=== PATIENT | female | born 1970 | race Two or more races ===

== ENCOUNTER 2024-12-20 10:58 | Emergency (ER) | payer OTHER ==
[~2024-12-20] VITALS: Ht 165.1 cm; Wt 72.6 kg
[2024-12-20] MEDS ORDERED: IPRATROPIUM/ALBUTEROL SULFATE 3 ML AMPUL.NEB IH ONE ×2 (13:30→14:01)
[2024-12-20] MEDS ORDERED: BENZONATATE 100 MG CAPSULE PO ONE (13:30)
[2024-12-20 14:34] LABS: HEMATOCRIT 45.1 % (36.0-45.00); HEMOGLOBIN 15.4 g/dL (12.0-15.00); MEAN CELL VOLUME 90.1 fL (80.00-100.00); MEAN CORPUSCULAR HEMOGLOBIN 30.9 pg (27.00-32.0); MEAN CORPUSCULAR HGB CONC 34.3 g/dl (32.0-36.0); PLATELET COUNT 212 K/uL (150-450); RED CELL DISTRIBUTION WIDTH 13.5 % (11.5-14.5)
[2024-12-20 14:50] LABS: CALCIUM 9.7 mg/dL (8.5-10.1); CREATININE SERUM 0.87 mg/dL (0.55-1.02); GFR 67.6; POTASSIUM 4.12 mEq/L (3.5-5.1)
[2024-12-20] MEDS ORDERED: IPRAT-ALBUT 0.5-3 ML IH (15:06)
[2024-12-20] MEDS ORDERED: AMOX1TAB5 PO (15:06)
[2024-12-20] MEDS ORDERED: SINGULAIR10 MG PO (15:06)
[2024-12-20] MEDS ORDERED: BENZONATATE200 M1 PO (15:06)
== END 2024-12-20 15:21 | disposition home or self-care (01) ==
LOC: ER 11:00
PROVIDERS: General Practice
DX: J06.9 Acute upper respiratory infection, unspecified (principal); J00 Acute nasopharyngitis [common cold]; R05.9 Cough, unspecified; Z20.822 Contact with and (suspected) exposure to COVID-19; Z88.1 Allergy status to other antibiotic agents